=== PATIENT | male | born 1960 | race Caucasian/White ===

== ENCOUNTER 2017-01-19 14:36 | Day surgery (SDC) | payer BC ==
[~2017-01-19] VITALS: Ht 177.8 cm; Wt 105.9 kg
[~2017-01-19 14:36] MED LIST: ALPHAGAN 0.2%5 ML EACH EYE; COSOPT EYE DROPS5 ML EACH EYE; ZOCOR5 MG PO
[2017-01-19 15:36] VITALS: BP 113/68; Ht 177.8 cm; Wt 105.9 kg
--- NOTE | 2017-01-20 16:52 | OP ---
PATIENT NAME: YESSI GOMEZ MEDICAL RECORD: [id number] :64 LOCATION:D.OPS ADMISSION DATE: SURGEON: HONG HOUSER DO OPERATION DATE: 01/19/17 PROCEDURE: Esophagogastroduodenoscopy with biopsies. INDICATION: Foreign body/food bolus. SCOPE: Olympus video gastroscope. MEDICATIONS: See anesthesia record. The patient was sedated and given general anesthesia for this procedure. ESTIMATED BLOOD LOSS: Minimal. COMPLICATIONS: None. FINDINGS: Informed consent was given. The patient was intubated to protect his airway. He was placed in position, and the endoscope was directly advanced under direct visualization through the shawn th to the second portion of the duodenum. The upper, middle, and lower thirds of the esophagus appeared normal. At the gastroesophageal junction, there was severe irritation and LA class C to D reflux-induced esophagitis. The area looked irritated and consistent with a recent passage of a food bolus. Just beyond the gastroesophageal junction, the meat that was recently impacted at the gastroesophageal junction was visualized. No pushing or removal was necessary as it had already passed into the stomach. Retroflexion was performed to view the cardia where a hiatal hernia was present. This was a small sliding type hernia. The fundus and body of the stomach appeared normal. In the antrum and prepyloric region, there were some erosions, erythema, and granularity consistent with gastritis. Biopsies were taken to submit for histology and to rule out Helicobacter-pylori. The endoscope was advanced beyond the pylorus into the duodenum where there was severe duodenitis with congestion, edema, and erosions. The scope was slowly withdrawn from the patient. The patient tolerated the procedure well, and there were no complications. IMPRESSIONS: 1. Reflux-induced esophagitis at the gastroesophageal junction along with irritation from a recent food bolus/meat impaction. 2. Small sliding hiatal hernia. 3. Gastritis. 4. Duodenitis. PLAN/RECOMMENDATIONS: 1. Discharge home when recovery parameters are met. 2. Continue a regular diet but be sure to chew food well prior to swallowing. 3. Start Protonix 40 milligrams daily or equivalent proton pump inhibitor at 40 milliequivalent dose for at least eight weeks. 4. Repeat upper endoscopy in eight weeks to document healing of inflammation and to perform esophageal dilation if indicated. 5. Follow-up in gastroenterology clinic as needed. OPERATIVE REPORT [id number] YESSI GOMEZ NATHAN A DO at 1652 CC: [id number] DICTATION DATE: 01/19/17 1400 FINAL OPERATIONS TECHNICIAN: DM 01/20/17 0823 [facility] 01/19/17 [id number] [place] [address]
== END 2017-01-19 17:41 | disposition home or self-care (01) ==
LOC: D.OPS 14:36
DX: K21.0 Gastro-esophageal reflux disease with esophagitis (principal); K44.9 Diaphragmatic hernia without obstruction or gangrene; K29.40 Chronic atrophic gastritis without bleeding; K29.80 Duodenitis without bleeding; Z01.812 Encounter for preprocedural laboratory examination

== ENCOUNTER 2018-12-13 05:35 | Day surgery (SDC) | payer OTHER ==
[~2018-12-13] VITALS: Ht 177.8 cm; Wt 111.4 kg
[2018-12-13] MEDS ORDERED: PRED FORTE5 ML LEFT EYE (07:34)
[2018-12-13 07:45] VITALS: BP 126/86; Ht 177.8 cm; Wt 111.4 kg
--- NOTE | 2018-12-13 12:15 | OP ---
PATIENT NAME: YESSI GOMEZ MEDICAL RECORD: [id number] :64 LOCATION:D.OPS ADMISSION DATE: SURGEON: SALEEM MELGAR MD DATE OF OPERATION: 12/13/2018 PREOPERATIVE DIAGNOSIS: History of colon polyps, in need of surveillance colonoscopy. POSTOPERATIVE DIAGNOSES: 1. History of colon polyps, in need of surveillance colonoscopy with fair prep. 2. One sessile colon polyp, which was an 8 mm x 8 mm polyp and appeared to be adenomatous. 3. Two anal papilla. 4. Two metallic andreia present from the patient's procedure for prolapse and hemorrhoids. OPERATIVE COURSE: 1. Total colonoscopy to the cecum. 2. Hot biopsy forceps polypectomy times 1. SURGEON: Saleem Melgar MD ORE ROASTER: None. BLOOD LOSS: Minimal. ANESTHESIA: IV sedation. COMPLICATIONS: None. ENDOSCOPIC COURSE: The patient was conveyed to the endoscopy suite electively on 12/13/2018. IV sedation was induced by the anesthesia staff. The patient was placed in the Barr position. A digital rectal examination was performed. A colonoscope was inserted through the anus. It was easily advanced to the cecum. The prep was fair. I could only exclude large polyps or obstructing colonic masses. I slowly withdrew the endoscope. I irrigated and aspirated extensively. The pullback was greater than an 18-minute pullback. One polyp was noted and it was removed in its entirety utilizing the hot biopsy forceps polypectomy technique. A retroflexed view was obtained in the rectum. I noted two clips from the patient's procedure for prolapse and hemorrhoids. These were grasped and removed. There were 2 anal papilla. These were cauterized with the hot biopsy forceps, but were not removed. I then unretroflexed the scope and removed it under direct vision. PLAN: I will plan for the patient's next surveillance colonoscopy to take place in 3 years. TRANSINT:[id number] Voice Confirmation ID: [id number] DOCUMENT ID: [id number] OPERATIVE REPORT [id number] YESSI GOMEZ ROBERT MD at 1215 CC: HOLLIE BERNAL [id number] DICTATION DATE: 12/13/18 1037 ANIMAL HUSBANDMAN: 12/13/18 1211 [facility] 12/13/18 [place] [id number]
== END 2018-12-13 11:30 | disposition home or self-care (01) ==
LOC: D.OPS 05:35
PROVIDERS: ATTEND Surgery
DX: D12.3 Benign neoplasm of transverse colon (principal); Z86.010 Personal history of colon polyps; D12.9 Benign neoplasm of anus and anal canal; M79.5 Residual foreign body in soft tissue; Z01.812 Encounter for preprocedural laboratory examination